=== PATIENT | male | born 1980 | race Caucasian/White ===

== ENCOUNTER → 2024-11-28 10:12 | Outpatient (BNVA) | payer OTHER, SELFPAY | PROVIDERS: PCP Family Medicine; Visit Provider Family Medicine | DX: R29.898 Other symptoms and signs involving the musculoskeletal system (principal); E83.52 Hypercalcemia | CPT/HCPCS: 80053; 82310; 82550; 83970; 84443; 85025; 85651; 86038; 86140; 86431 ==